=== PATIENT | male | born 1955 | race African-American/Black ===

== ENCOUNTER 2017-02-17 14:25 | Inpatient (IN) | payer MEDICAID ==
[~2017-02-17] VITALS: Ht 177.8 cm; Wt 78.4 kg
[2017-02-17 15:25] LABS: Basophils # (auto) 0 uL; Basophils % (auto) 0.4 % (0.0-2.0); Eosinophils # (auto) 0 uL; Eosinophils % (auto) 0.3 % (0.0-7.0); Hematocrit 38.8 % (41.0-53.0); Lymphocytes # (auto) 0.9 uL; Lymphocytes % (auto) 11.1 % (10.0-50.0); Mean Corpuscular Hemoglobin 29.5 pg (28.0-32.0); Mean Corpuscular Hgb Conc. 33.4 g/dL (32.0-36.0); Mean Corpuscular Volume 88.6 fL (80.0-100.0); Monocytes # (auto) 0.6 uL; Monocytes % (auto) 7.7 % (0.0-12.0); Neutrophils # (auto) 6.2 uL; Neutrophils % (auto) 80.5 % (37.0-80.0); Platelet Count (auto) 197 10^3/uL (140-450); Red Cell Distribution Width 14.8 % (11.6-16.0); White Blood Cell 7.7 10^3/uL (4.4-10.8)
[2017-02-17 16:24] LABS: Albumin 3.6 g/dL (3.4-5.0); BUN/Creatinine Ratio 9.9; Bilirubin, Total 0.4 mg/dL (0.2-1.0); Calcium 9.6 mg/dL (8.5-10.1); Magnesium 2.1 mg/dL (1.6-2.6); Potassium 4.1 mmol/L (3.5-5.1); Total Protein 7.4 g/dL (6.4-8.2)
[2017-02-17 19:06] LABS: Urine Bilirubin Negative (Negative); Urine Blood Negative /uL (Negative); Urine Color Yellow (Yellow); Urine Glucose Normal (Normal); Urine Ketone Negative (Negative); Urine Nitrite Negative (Negative); Urine RBC <1 /hpf (0 - 3); Urine Urobilinogen Normal (Negative)
[2017-02-17] MEDS ORDERED: cloNIDine HCL 0.1 MG TAB PO ONE (20:30)
[2017-02-17] MEDS ORDERED: ACETAMINOPHEN 325 MG TAB PO PRN (22:15)
[2017-02-17] MEDS ORDERED: D5W/SOD CHL 0.45% 1,000 ML IV SCH (22:15)
[2017-02-17] MEDS ORDERED: HYDROcodone-ACET 5/325MG TAB PO PRN (22:15)
[2017-02-17] MEDS ORDERED: ONDANSETRON HCL 4 MG/2 ML VIAL IV PRN (22:15)
[2017-02-17] MEDS ORDERED: cloNIDine HCL 0.1 MG TAB PO PRN (22:15)
[2017-02-17 23:20] VITALS: BP 111/64
[2017-02-18 05:00] VITALS: BP 117/78
[2017-02-18 06:35] LABS: Basophils # (auto) 0 uL; Basophils % (auto) 0.7 % (0.0-2.0); Eosinophils # (auto) 0.1 uL; Eosinophils % (auto) 1.3 % (0.0-7.0); Hematocrit 34.7 % (41.0-53.0); Hemoglobin 11.4 g/dL (13.5-17.5); Lymphocytes # (auto) 1.7 uL; Lymphocytes % (auto) 28.5 % (10.0-50.0); Mean Corpuscular Hemoglobin 29.5 pg (28.0-32.0); Mean Corpuscular Volume 89.4 fL (80.0-100.0); Mean Platelet Volume 9.3 fL (7.4-10.4); Monocytes # (auto) 0.8 uL; Monocytes % (auto) 12.4 % (0.0-12.0); Neutrophils # (auto) 3.5 uL; Neutrophils % (auto) 57.1 % (37.0-80.0); Platelet Count (auto) 161 10^3/uL (140-450); Red Cell Distribution Width 14.9 % (11.6-16.0); White Blood Cell 6.1 10^3/uL (4.4-10.8)
[2017-02-18 07:15] LABS: Albumin 2.9 g/dL (3.4-5.0); BUN/Creatinine Ratio 9.1; Bilirubin, Total 0.8 mg/dL (0.2-1.0); Calcium 8.7 mg/dL (8.5-10.1); Total Protein 6.1 g/dL (6.4-8.2)
[2017-02-18 08:00] VITALS: BP 119/63
[2017-02-18] MEDS: FAMOTIDINE 20 MG TAB PO SCH ×2 (08:55→22:06)
[2017-02-18] MEDS: ENOXAPARIN SOD 40 MG/0.4 ML SYRINGE SC SCH (08:55)
[2017-02-18 13:00] VITALS: BP 141/83
[2017-02-18] MEDS ORDERED: LORazepam 2MG/ML-1ML VIAL IV ONE (13:30)
[2017-02-18] MEDS ORDERED: ASPirin-EC 81 mg tab PO ONE (13:45)
[2017-02-18 16:19] LABS: Temperature: 23.8 C (20.0-25.0)
[2017-02-18 17:30] VITALS: BP 137/79
[2017-02-18 21:43] VITALS: BP 146/76
[2017-02-18] MEDS ORDERED: DONEPEZIL HYDROCHLORIDE 5 MG TAB PO SCH (22:00)
[2017-02-19] VITALS (7 sets, daily range): BP systolic 128–163; BP diastolic 64–97
[2017-02-19 08:35] LABS: BUN/Creatinine Ratio 10.8; Calcium 9.4 mg/dL (8.5-10.1); Potassium 3.8 mmol/L (3.5-5.1)
[2017-02-19] MEDS ORDERED: ASP81EC PO (09:02)
[2017-02-19] MEDS ORDERED: AMLO5TAB2 PO (09:02)
[2017-02-19] MEDS: FAMOTIDINE 20 MG TAB PO SCH (09:33)
[2017-02-19] MEDS: ENOXAPARIN SOD 40 MG/0.4 ML SYRINGE SC SCH (09:34)
[2017-02-19] MEDS ORDERED: amLODIPine BESYLATE 5 MG TAB PO SCH (10:00)
[2017-02-19] MEDS ORDERED: ASPirin-EC 81 mg tab PO SCH (10:00)
== END 2017-02-19 18:00 | disposition home health service (06) | DRG 757 ==
LOC: ER 14:31 → OVERFLOW 14:32 → CENTRAL 23:00
PROVIDERS: ADMIT Internal Medicine; ATTEND Internal Medicine
DX: F03.90 Unspecified dementia, unspecified severity, without behavioral disturbance, psychotic disturbance, mood disturbance, and anxiety (principal); G93.40 Encephalopathy, unspecified; E87.0 Hyperosmolality and hypernatremia; I11.9 Hypertensive heart disease without heart failure; I10 Essential (primary) hypertension; G20 Parkinson's disease; E86.0 Dehydration; Z86.73 Personal history of transient ischemic attack (TIA), and cerebral infarction without residual deficits; D64.9 Anemia, unspecified
CPT/HCPCS: 36415; 70450; 70551; 71010; 80048; 80053; 80061; 81001; 82607; 82746; 82962; 83735; 84443; 85025; 93005; 95819; 96360; 97116; 97530